=== PATIENT | male | born 1980 | race Caucasian/White ===

== ENCOUNTER 2020-09-29 10:20 | Outpatient (REF) | payer OTHER, SELFPAY | END 2020-09-29 10:21 | disposition home or self-care (01) | LOC: HO.LAB 10:20 | PROVIDERS: Visit Provider Internal Medicine | DX: Z20.828 Contact with and (suspected) exposure to other viral communicable diseases (principal) | CPT/HCPCS: 36415; C9803; U0003 ==

== ENCOUNTER 2021-04-17 05:02 | Emergency (ER) | payer OTHER, SELFPAY ==
[2021-04-17 05:08] VITALS: BP 166/101; PULSE 73; RESP 18; TEMP 37.4; O2SAT 99; BMI 19.1
--- NOTE | 2021-04-17 05:09 | ED.GENADULT ---
HPI - General Adult General Stated complaint: RIGHT EAR PAIN X'S 6 HOURS Time Seen by Provider: 04/17/21 05:08 Source: patient Mode of arrival: EMS Limitations: no limitations History of Present Illness HPI narrative: Patient comes emergency room complaining of ear pain for 6 hours. Patient states he has not had any fever no chills, states the pain is in the right side of his ear. Patient denies discharge. No trauma. Related Data Previous Rx's Medication Instructions Recorded acetic acid 3 drp OTIC (EAR) RIGHT Q6H #15 ml 04/17/21 amoxicillin-pot clavulanate 1 tab PO BID #19 tab 04/17/21 [Augmentin] Allergies Allergy/AdvReac Type Severity Reaction Status Date / Time No Known Allergies Allergy Verified 04/17/21 05:08 Review of Systems Review of Systems: Constitutional : No Weight loss, No Fever, No Chills, No Night Sweats, No Fatigue, No Malaise ENT/Mouth : No Hearing loss, complaining of right-sided ear pain, No Nasal Congestion, No Sinus Pain, No Hoarseness, No sore throat, No Rhinorrhea, No Swallowing Difficulty Eyes: No Eye Pain, No Swelling, No Redness, No Foreign Body, No Discharge, No Vision Changes Cardiovascular : No Chest Pain, No SOB, No Dyspnea on Exertion, No Orthopnea, No Edema, No Palpitations Respiratory : No Cough, No Sputum, No Wheezing, No Smoke Exposure, No Dyspnea Gastrointestinal : No Nausea, No Vomiting, No Diarrhea, No Constipation, No abdominal Pain, No Hematochezia, No Melena Genitourinary : no irregular bleeding, No Dysuria, No Urinary Frequency, No Hematuria, No Urinary Incontinence, No Urgency, No Flank Pain, No Urinary Flow Changes, No Hesitancy Musculoskeletal : No joint pain, No Myalgias, No Joint Swelling Skin : No Skin Lesions, No rash Neuro : No Weakness, No Numbness, No Paresthesias, No Loss of Consciousness, No Dizziness, No Headache Psych : No Anxiety/Panic, No Depression, No SI/HI/AH/VH, No Social Issues, Heme/Lymph: No Bruising, No Bleeding,No Lymphadenopathy Endocrine : No Polyuria, No Polydipsia, No Temperature Intolerance PMFSH Past Medical History Medical History (Updated 04/17/21 @ 05:12 by Genny Lubin MD) Hypertension Physical Exam Vital Signs: Appearance: Alert. Oriented X3. No acute distress. Eyes: Pupils equal, round and reactive to light. ENT: Pharynx normal. Small aphthous ulcer on the right side of the oral mucosa, left ear within normal limits, right ear has erythematous tympanic membrane with a small white patch Neck: Normal inspection. Neck supple. No lymph nodes noted. No crepitus CVS: Normal heart rate and rhythm. Pulses normal. Normal S1 and S2 Respiratory: No respiratory distress. Breath sounds normal. No Wheezing. No rales Abdomen: Soft and nontender. No rigidity. No distention. good BS x4 Skin: Skin warm and dry. Normal skin color. Normal skin turgor. Extremities: No lower extremity edema. No lower extremity edema. No Lacerations. No Rash Neuro: Oriented X 3. No motor deficit. No sensory deficit. Moving all extermities. No slurred speech. Course Course Course Narrative: I discussed the physical exam with the patient, patient does have his media. Patient was given dose of IM Toradol due to the discomfort, also given the 1st dose of Augmentin. Discharge Plan Discharge Clinical Impression: Otitis media Qualifiers: Otitis media type: unspecified Chronicity: acute Qualified Code(s): H66.90 - Otitis media, unspecified, unspecified ear Patient Disposition: Home, Self-Care Instructions: Ear Infection (ED) Additional Instructions: Please follow-up with your primary care physician tomorrow. If you have any worsening or new symptoms, please return to the emergency room or call 911 Prescriptions: New amoxicillin-pot clavulanate [Augmentin] 875-125 mg tablet 1 tab PO BID Qty: 19 RF: 0 acetic acid 2 % solution 3 drp otic (ear) right Q6H Qty: 15 RF: 0
[2021-04-17 05:13] VITALS: BP 155/92; PULSE 75; O2SAT 99
[2021-04-17] MEDS: Amoxicillin/Potassium Clav 875 MG TABLET PO (05:15)
[2021-04-17] MEDS: Ketorolac Tromethamine 60 MG/2 ML VIAL IM (05:15)
--- NOTE | 2021-04-17 05:35 | PC.NURSE ---
PT GIVEN SANDWICH AND SODA, REPORTS HE IS HOMELESS. PT REPORTS HIS PHARMACY IS IN [place]. NO TROUBLE SWALLOWING OR COMPLAINT OF DYSPNEA.
== END 2021-04-17 05:44 | disposition home or self-care (01) ==
LOC: HO.ED 05:22
PROVIDERS: Emergency Provider Emergency Medicine
DX: H66.91 Otitis media, unspecified, right ear (principal); I10 Essential (primary) hypertension
CPT/HCPCS: 96372; 99283; 99284; J1885